=== PATIENT | male | born 1955 | race Caucasian/White ===

== ENCOUNTER 2019-04-28 12:00 | Day surgery (SDC) | payer BC, OTHER ==
[~2019-04-28] VITALS: Ht 154.9 cm; Wt 68.6 kg
[2019-04-28 13:08] VITALS: Ht 154.9 cm; Wt 68.6 kg
[2019-04-28 13:32] VITALS: BP 148/80; PULSE 63; RESP 18
[2019-04-28 15:09] VITALS: BP 164/93; PULSE 66; RESP 16
[2019-04-28 15:21] VITALS: BP 140/87; PULSE 56; RESP 17
[2019-04-28 15:42] VITALS: BP 168/77; PULSE 58; RESP 18
== END 2019-04-28 18:07 | disposition home or self-care (01) ==
LOC: GIL 12:00
PROVIDERS: ATTEND Internal Medicine Gastroenterology
DX: Z12.11 Encounter for screening for malignant neoplasm of colon (principal); K64.8 Other hemorrhoids; K57.30 Diverticulosis of large intestine without perforation or abscess without bleeding
CPT/HCPCS: 45380; 88305; Z7610